=== PATIENT | female | born 1940 | race Caucasian/White ===

== ENCOUNTER 2018-02-16 14:21 | Outpatient (CLI) | payer MEDICARE | END 2018-02-16 14:22 | disposition home or self-care (01) | LOC: BICRAD 14:21 | PROVIDERS: ATTEND Family Medicine | DX: M47.892 Other spondylosis, cervical region (principal); M47.893 Other spondylosis, cervicothoracic region; M25.552 Pain in left hip; M47.896 Other spondylosis, lumbar region | CPT/HCPCS: 72040 ==

== ENCOUNTER 2018-03-17 13:15 | Outpatient (CLI) | payer MEDICARE ==
--- NOTE | 2018-03-17 15:37 | MRI ---
MRI CERVICAL SPINE: 03/17/18 Multiplanar and multisequential imaging cervical spine obtained. INDICATIONS: Neck pain. Degenerative disc change. Disc narrowing. FINDINGS: Moderate degenerative changes of the cervical spine noted. There is loss of disc space at all levels with osteophytes in the cervical vertebrae and posterior spondylitic changes. Slight anterolisthesis at C4-5. At C3-4, posterior disc bulge and spondylolysis efface the anterior subarachnoid space. No significan t cord impingement. Right foraminal encroachment due to facet and uncinate hypertrophy. At C4-5, slight anterolisthesis. Posterior spondylitic changes flatten the thecal sac and efface the anterior subarachnoid space. These changes abut the anterior cord. Mild foraminal narrowing secondary to facet and uncinate hypertrophy. At C5-6, posterior spondylosis effaces the anterior subarachnoid space. Changes are slightly more pro nounced paracentrally to the right. No significant cord impingement. Mild right foraminal narrowing d ue to hypertrophic change. At C6-7, mild spondylosis. Anterior subarachnoid space is preserved. Foramina appear patent. Cord signal appears normal without evidence of myelomalacia. IMPRESSION: Multilevel degenerative disc changes throughout the cervical spine. 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 Slight anterolisthesis at C4-5 with spondylitic changes at this level abutting the anterior cord. POS: NETTIE
--- NOTE | 2018-03-17 15:38 | MRI ---
MRI LUMBAR SPINE NONCONTRAST: HISTORY: Low back pain with left leg radiculopathy. FINDINGS: The conus medullaris has a normal appearance. Vertebral body heights are maintained. There is desic cation of all the intervertebral disks. A mild posterior disk bulge is apparent at the T11-T12 level. T12-L1: Mild osteophytosis. The central canal and neural foramina are patent. L1-L2: There is disk space narrowing. There is a very mild disk bulge. There is osteophytosis. Th e central canal and neural foramina remain patent. L2-L3: Disk space narrowing. Posterior disk bulge with circumferential degenerative changes. Mild stenosis of the central canal. L3-L4: Disk space narrowing. Posterior disk bulge with circumferential degenerative changes. Mild stenosis of the central canal. Moderate stenosis of the left neural foramen. L4-L5: Disk space narrowing. Mild disk bulge with circumferential degenerative changes. Mild steno sis of the central canal. Far left lateral disk bulge with moderate to severe stenosis of the left n eural foramen. L5-S1: Disk space narrowing. Minimal degenerative retrolisthesis. The thecal sac is patent. Degen erative changes with moderate right foraminal stenosis. IMPRESSION: Multilevel degenerative changes throughout the lumbar spine, as detailed above. Stenosis is greatest at the left neural foramen of the L4-L5 level. Clinical correlation regarding the left L4-L5 dermat ome is required. POS: NETTIE
== END 2018-03-17 13:16 | disposition home or self-care (01) ==
LOC: SCSMRI 13:15
PROVIDERS: ATTEND Family Medicine
DX: M48.02 Spinal stenosis, cervical region (principal); M48.061 Spinal stenosis, lumbar region without neurogenic claudication; M47.897 Other spondylosis, lumbosacral region; M47.892 Other spondylosis, cervical region; M43.12 Spondylolisthesis, cervical region
CPT/HCPCS: 72141; 72148

== ENCOUNTER 2018-10-04 10:21 | Outpatient (CLI) | payer MEDICARE ==
--- NOTE | 2018-10-04 11:48 | BD ---
DEXA BONE DENSITY STUDY: HISTORY: Postmenopausal. FINDINGS: Lumbar Spine: BMD (g/cm2) L1 0.843 T-Score: -1.3 L2 0.924 T-Score: -0.9 L3 0.960 T-Score: -1.1 L4 1.048 T-Score: -0.1 L1-L4 0.950 T-Score: -0.9 Femoral Neck: 0.629 T-Score: -2.0 Total Femur: 0.744 T-Score: -1.6 Impression: 1. Osteopenia of the left femoral neck and normal bone mineral density of the lumbar spine. 2. Ten-year fracture for a major osteoporotic fracture is 14% and of a hip fracture 3.5%. These fra cture probabilities are calculated for an untreated patient. POS: NETTIE
== END 2018-10-04 10:22 | disposition home or self-care (01) ==
LOC: BICMAMMO 10:21
PROVIDERS: ATTEND Family Medicine
DX: M81.0 Age-related osteoporosis without current pathological fracture (principal); M85.852 Other specified disorders of bone density and structure, left thigh
CPT/HCPCS: 77080

== ENCOUNTER 2022-06-10 11:23 | Outpatient (CLI) | payer MEDICARE | END 2022-06-10 11:24 | disposition home or self-care (01) | LOC: BICRAD 11:23 | PROVIDERS: ATTEND Nurse Practitioner Family | DX: R05.3 Chronic cough (principal) | CPT/HCPCS: 71046; U0003; U0005 ==

== ENCOUNTER 2023-07-29 11:23 | Outpatient (CLI) | payer MEDICARE | END 2023-07-29 11:24 | disposition home or self-care (01) | LOC: BICRAD 11:23 | PROVIDERS: ATTEND Nurse Practitioner Family | DX: E11.9 Type 2 diabetes mellitus without complications (principal); R53.82 Chronic fatigue, unspecified; R05.3 Chronic cough; U07.1 COVID-19 | CPT/HCPCS: 36415; 71046; 80053; 85025; 86769 ==

== ENCOUNTER 2025-09-17 10:33 | Outpatient (CLI) | payer OTHER | END 2025-09-17 10:34 | disposition home or self-care (01) | LOC: MRI 10:33 | PROVIDERS: ATTEND Psychiatry & Neurology Neurology | DX: M51.16 Intervertebral disc disorders with radiculopathy, lumbar region (principal); M50.01 Cervical disc disorder with myelopathy, high cervical region; M50.11 Cervical disc disorder with radiculopathy, high cervical region; M50.121 Cervical disc disorder at C4-C5 level with radiculopathy; M50.021 Cervical disc disorder at C4-C5 level with myelopathy; M50.122 Cervical disc disorder at C5-C6 level with radiculopathy; M50.022 Cervical disc disorder at C5-C6 level with myelopathy; M50.123 Cervical disc disorder at C6-C7 level with radiculopathy; M50.023 Cervical disc disorder at C6-C7 level with myelopathy; M50.13 Cervical disc disorder with radiculopathy, cervicothoracic region; M50.03 Cervical disc disorder with myelopathy, cervicothoracic region; M47.12 Other spondylosis with myelopathy, cervical region; M47.22 Other spondylosis with radiculopathy, cervical region; M47.13 Other spondylosis with myelopathy, cervicothoracic region; M47.23 Other spondylosis with radiculopathy, cervicothoracic region; M47.26 Other spondylosis with radiculopathy, lumbar region; M47.27 Other spondylosis with radiculopathy, lumbosacral region; M48.02 Spinal stenosis, cervical region; M48.03 Spinal stenosis, cervicothoracic region; M48.061 Spinal stenosis, lumbar region without neurogenic claudication; M48.07 Spinal stenosis, lumbosacral region; M43.12 Spondylolisthesis, cervical region | CPT/HCPCS: 72141; 72148 ==